=== PATIENT | female | born 1990 | race Caucasian/White ===

== ENCOUNTER 2022-07-09 06:37 | Day surgery (SDC) | payer BC ==
[2022-06-29 14:34] VITALS: BMI 21.4
[2022-07-09] MEDS ORDERED: EPINEPHrine/PF 1 MG/1 ML (1:1,000) AMPULE ONE ×3 (07:08→08:38)
[2022-07-09] MEDS ORDERED: OXYMETAZOLINE 0.05% NASAL SOLUTION 15 ML BOTTLE NS ONE (07:08)
[2022-07-09] MEDS ORDERED: LIDOCAINE HCL 1%, 10 MG/ML (20ML VIAL) ONE ×2 (07:09→08:38)
[2022-07-09] MEDS ORDERED: MIDAZOLAM HCL 2 MG/2 ML SINGLE DOSE VIAL ONE (08:07)
[2022-07-09] MEDS ORDERED: ROCURONIUM BROMIDE 50 MG/5 ML SYRINGE ONE ×2 (08:08→09:05)
[2022-07-09] MEDS ORDERED: PROPOFOL 20 ML ONE ×2 (08:08→12:06)
[2022-07-09] MEDS ORDERED: BACITRACIN 15 GM TUBE TOPICAL OINTMENT ONE (13:11)
[2022-07-09] MEDS ORDERED: ONDANSETRON 4 MG/2 ML VIAL IVPB PRN (14:03)
[2022-07-09] MEDS ORDERED: oxyCODONE HCL 5 MG TABLET PO PRN ×3 (14:03→14:04)
[2022-07-09] MEDS ORDERED: ONDANSETRON 4 MG/2 ML VIAL IVPUSH PRN (14:04)
[2022-07-09] MEDS ORDERED: PROMETHAZINE HCL 25 MG/1 ML VIAL IVPUSH PRN (14:04)
[2022-07-09] MEDS ORDERED: ACETAMINOPHEN 1000 MG/100 ML BAG IVPB ONE ×2 (14:10→15:16)
[2022-07-09] MEDS ORDERED: LACTATED RINGERS SOLUTION 1,000 ML IV SCH ×2 (14:15)
[2022-07-09] MEDS ORDERED: ACETAMINOPHEN INJECTION 100 ML IVPB ONE (14:15)
[2022-07-09] MEDS ORDERED: FENTANYL CITRATE/PF 50 MCG/ML VIAL ONE (14:24)
[2022-07-09] MEDS ORDERED: PROMETHAZINE HCL 25 MG/1 ML VIAL ONE (16:03)
[2022-07-09 17:16] VITALS: BP 112/77; PULSE 87; RESP 20; TEMP 97.8
== END 2022-07-09 16:55 | disposition home or self-care (01) ==
LOC: FASU 06:37
PROVIDERS: ATTEND Plastic Surgery
PROC: 09U Ear, Nose, Sinus, Supplement (ICD-10-PCS; 2022-07-09)
PROC: 09B0XZZ Excision of Right External Ear, External Approach (ICD-10-PCS; 2022-07-09)
PROC: 09N Ear, Nose, Sinus, Release (ICD-10-PCS; 2022-07-09)
PROC: 09SM0ZZ Reposition Nasal Septum, Open Approach (ICD-10-PCS; principal; 2022-07-09 09:04)
DX: J98.8 Other specified respiratory disorders (principal); J34.89 Other specified disorders of nose and nasal sinuses; J34.2 Deviated nasal septum
CPT/HCPCS: 81025; 88304-TC; 94760